=== PATIENT | male | born 1980 | race Caucasian/White ===

== ENCOUNTER 2021-07-26 14:19 | Emergency (ER) | payer OTHER ==
[2021-07-26 14:29] VITALS: BP 144/85; PULSE 89; TEMP 98.1; BMI 30.7
[2021-07-26] MEDS ORDERED: IBUPROFEN 600 MG TABLET (FP) PO ONE ×2 (14:37→14:59)
== END 2021-07-26 16:50 | disposition home or self-care (01) ==
LOC: FER 14:19
DX: S82.001A Unspecified fracture of right patella, initial encounter for closed fracture (principal); W22.8XXA Striking against or struck by other objects, initial encounter; Y92.9 Unspecified place or not applicable
CPT/HCPCS: 73562-TC-RT-FY; 73590-TC-RT-FY; 73610-TC-RT-FY; 73630-TC-RT-FY; 99283-25